=== PATIENT | female | born 1965 | race Caucasian/White ===

== ENCOUNTER 2024-11-06 15:00 | Emergency (ER) | payer OTHER ==
[2024-11-06 18:28] LABS: Hematocrit 24.1 % (34.1-44.9); Hemoglobin 7.2 g/dL (11.2-15.7); Lymphocytes % 15.5 % (19.3-51.7); Mean Cell Volume 106.6 fL (79.4-94.8); Mean Corpuscular Hemoglobin 31.9 pg (25.6-32.2); Mean Corpuscular Hgb Concent. 29.9 g/dL (32.2-35.5); Mean Platelet Volume 9.7 fL (9.4-12.3); Monocytes % 6.9 % (4.7-12.5); Neutrophil % 72.7 % (34.0-71.1); Platelet Count 129 x10^3/uL (182-369); Red Blood Count 2.26 x10^6/uL (3.93-5.22); Red Cell Distribution Width 12.9 % (11.7-14.4); White Blood Count 6.2 x10^3/uL (3.98-10.04)
[2024-11-06 18:29] LABS: Absolute Neutrophil Ct (ANC) 4.51 x10^3/uL (1.56-6.13); BASOPHIL % 0.6 % (0.1-1.2); Basophil (Absolute #) 0.04 x10^3/uL (0.01-0.08); Eosinophil (Absolute #) 0.25 x10^3/uL (0.04-0.36); IMMATURE GRAN # 0.02 x10^3u/L (0.001-0.031); IMMATURE GRAN % 0.3 % (0.001-0.429); Lymphocyte (Absolute #) 0.96 x10^3/uL (1.18-3.74); Monocyte (Absolute #) 0.43 x10^3/uL (0.24-0.86)
--- NOTE | 2024-11-06 18:30 | ERPHSYRPT ---
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 She says she felt like she could not get her air in. She has multiple medical problems. She does not have any chest pain. She said it just felt tight whenever she tried to inhale. She is not short of breath. I would not say that she has pleuritic type symptoms. She has no fever or chills. She does not appear toxic.She has not had any productive cough.She has no other complaints at this time.Patient is a heavy smoker. She has never been diagnosed with COPD but I think she may have (CHAPIS LOERA) Allergies/Adverse Reactions: cefadroxil Allergy (Verified 11/06/24 15:23) cephalexin [From Keflex] Allergy (Verified 11/06/24 15:20) clindamycin Allergy (Verified 11/06/24 15:23) empagliflozin [From Jardiance] Allergy (Verified 11/06/24 15:20) rifampin Allergy (Verified 11/06/24 15:20) Home Medications: Aspirin 81 mg PO DAILY 11/06/24 [History] Atorvastatin Calcium [Lipitor 40Mg] 40 mg PO DAILY 11/06/24 [History] Bumetanide 1 mg [Bumex 1 mg] 0.5 mg PO BID 11/06/24 [History] Gabapentin [Neurontin ] 600 mg PO BID 11/06/24 [History] Lisinopril 10 mg [Zestril 10 MG] 10 mg PO DAILY PRN 11/06/24 [History] Methadone HCl 140 mg PO DAILY 11/06/24 [History] Travel Risk - International Travel Have you traveled outside of the country in past 3 weeks: No - Emerging Infectious Disease Are you exhibiting symptoms associated with any current EIDs: Yes Symptoms: Shortness of Breath <CHAPIS LOERA - Last Filed: 11/06/24 19:03> - Review of Systems Constitutional: No Symptoms Eyes: No Symptoms Ears, Nose, & Throat: No Symptoms Respiratory: Dyspnea on Exertion (LR) Cardiac: No Symptoms Abdominal/Gastrointestinal: No Symptoms <CHAPIS LOERA - Last Filed: 11/06/24 19:03> - Past Medical History Pertinent Past Medical History: Yes Neurological History: Peripheral Neuropathy, Stroke Cardiac History: High Cholesterol, Hypertension Respiratory History: No Pertinent History Endocrine Medical History: Diabetes Type II Musculoskeletal History: Arthritis Other Medical History: AAA (2021), STROKES (>), 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 SENSATION IN LLE POST AMPUTATION, PSOROSIS, CKD (STAGE 4), SCOLIOSIS - Past Surgical History Past Surgical History: Yes Gastrointestinal: Appendectomy Musculoskeletal: Amputation Female Surgical History: Section, Tubal Ligation Other Surgical History: AAA repair - Social History Smoking Status: Current every day smoker Exposure to second hand smoke: Yes - Social Determinants of Health Will the patient participate in the screening: Yes Do you worry about a steady place to live?: No Do you have any problems with any of the following?: No known problems In the past 12 months,have you had to go without utilities?: No Transportation Issues: No Has anyone in your support network made you feel unsafe?: No Have you or anyone in your house had to go w/o enough food: No <CHAPIS LOERA - Last Filed: 11/06/24 19:03> - Physical Exam General Appearance: no apparent distress Eye Exam: PERRL/EOMI Respiratory Exam: other (Patient has diminished breath sounds. It is coarse in the bases and there is some wheezing in the upper lungs bilaterally.), No chest tenderness Cardiovascular Exam: regular rate/rhythm, normal heart sounds Extremity Exam: normal inspection Neurologic Exam: alert Skin Exam: normal color SpO2: 100 <CHAPIS LOERA - Last Filed: 11/06/24 19:03> - Nursing Vital Signs Nursing Vital Signs: Initial Vital Signs O2 Sat by Pulse Oximetry 97 11/06/24 15:03 Pain Scale Pain Intensity 0 - Course Nursing assessment & vital signs reviewed: Yes EKG Interpreted by Me: Sinus Rhythm, Right Bundle Branch Block, Non-specific ST Changes <CHAPIS LOERA - Last Filed: 11/06/24 19:03> Ordered Tests: Active Orders 24 hr Category Date Time Status EKG-ER Only STAT Care 11/06/24 15:17 Completed CBC W DIFF Stat Lab 11/06/24 15:30 Completed CMP Stat Lab 11/06/24 15:30 Completed D-DIMER QUANTITATIVE Stat Lab 11/06/24 15:30 Completed Lactic Acid Stat Lab 11/06/24 18:33 Completed NT PRO BNPII Stat Lab 11/06/24 15:30 Completed TROPONIN Q4H Lab 11/06/24 15:30 Completed TROPONIN Q4H Lab 11/06/24 19:38 Completed VENOUS BLOOD GAS Stat Lab 11/06/24 18:24 Completed Respiratory Therapy Assessment DAILY RT 11/06/24 18:51 Completed Medication Summary Discontinued Medications Generic Name Dose Route Start Last Admin Trade Name Freq PRN Reason Stop Dose Admin Albuterol Sulfate 2.5 mg 11/06/24 18:33 11/06/24 18:46 Albuterol Solution 2.5 Mg/0.5 Ml Ud Solution IH 11/06/24 18:34 2.5 mg STAT ONE Administration Albuterol Sulfate Confirm 11/06/24 18:44 Albuterol Solution 2.5 Mg/0.5 Ml Ud Solution Administered 11/06/24 18:45 Dose 2.5 mg IH .STK-MED ONE Albuterol Sulfate 2.5 mg 11/06/24 19:12 11/06/24 20:16 Albuterol Sulfate 2.5 Mg/3 Ml Neb 11/06/24 19:13 Not Given STAT ONE Albuterol/Ipratropium 3 ml 11/06/24 18:33 11/06/24 18:46 Ipratropium/Albuterol Sulfate 3 Ml Ampul.Neb 11/06/24 18:34 3 ml STAT ONE Administration Albuterol/Ipratropium Confirm 11/06/24 18:44 Ipratropium/Albuterol Sulfate 3 Ml Ampul.Neb Administered 11/06/24 18:45 Dose 3 ml IH .STK-MED ONE Albuterol/Ipratropium 3 ml 11/06/24 20:50 11/06/24 20:52 Ipratropium/Albuterol Sulfate 3 Ml Ampul.Neb IH 11/06/24 20:51 3 ml STAT ONE Administration Albuterol/Ipratropium Confirm 11/06/24 20:51 Ipratropium/Albuterol Sulfate 3 Ml Ampul.Neb Administered 11/06/24 20:52 Dose 3 ml IH .STK-MED ONE Calcium Chloride Confirm 11/06/24 19:27 Calcium Chloride 100 Mg/Ml 10ml Inj. Administered 11/06/24 19:28 Dose 1,000 mg .ROUTE .STK-MED ONE Dextrose 50 ml 11/06/24 19:15 Dextrose 50%-Water 50 Ml Vial IV 12/06/24 19:14 1XONLY MANNY Dextrose Confirm 11/06/24 19:29 Dextrose 50%-Water 50 Ml Abboject Administered 11/06/24 19:30 Dose 50 ml IV .STK-MED ONE Dextrose 50 ml 11/06/24 19:41 11/06/24 19:42 Dextrose 50%-Water 50 Ml Abboject IV 11/06/24 19:42 50 ml STAT ONE Administration Furosemide 40 mg 11/06/24 19:13 11/06/24 19:38 Furosemide 40 Mg/4 Ml Vial IV 11/06/24 19:14 40 mg STAT ONE Administration Furosemide Confirm 11/06/24 19:28 Furosemide 40 Mg/4 Ml Vial Administered 11/06/24 19:29 Dose 40 mg .ROUTE .STK-MED ONE Calcium Chloride 1,000 mg/ 110 mls @ 220 mls/hr 11/06/24 19:12 11/06/24 20:05 Sodium Chloride IV 11/06/24 19:41 Infused ONCE ONE Infusion Sodium Chloride Confirm 11/06/24 19:29 Sodium Chloride 0.9% Administered 11/06/24 19:30 Dose 100 mls @ ud .ROUTE .STK-MED ONE Insulin Human Regular 10 unit 11/06/24 19:14 11/06/24 19:38 Insulin Regular, Human 1 Unit IV 11/06/24 19:15 10 unit STAT ONE Administration Insulin Human Regular Confirm 11/06/24 19:28 Insulin Regular, Human 1 Unit Administered 11/06/24 19:29 Dose 10 unit .ROUTE .[facility] ONE Lab/Rad Data: Laboratory Result Diagrams 11/06/24 15:30 11/06/24 15:30 Laboratory Results 11/06/24 11/06/24 11/06/24 Range/Units 19:38 18:33 18:24 WBC (3.98-10.04) x10^3/uL RBC (3.93-5.22) x10^6/uL Hgb (11.2-15.7) g/dL Hct (34.1-44.9) % MCV (79.4-94.8) fL MCH (25.6-32.2) pg MCHC (32.2-35.5) g/dL RDW (11.7-14.4) % Plt Count (182-369) x10^3/uL MPV (9.4-12.3) fL Gran % (34.0-71.1) % Immature Gran % (Auto) (0.001-0.429) % Nucleat RBC Rel Count (0.00-0.2) % Eos # (Auto) (0.04-0.36) x10^3/uL Immature Gran # (Auto) (0.001-0.031) x10^3u/L Absolute Lymphs (auto) (1.18-3.74) x10^3/uL Absolute Monos (auto) (0.24-0.86) x10^3/uL Absolute Nucleated RBC (0.00-0.012) x10^3u/L Lymphocytes % (19.3-51.7) % Monocytes % (4.7-12.5) % Eosinophils % (0.7-5.8) % Basophils % (0.1-1.2) % Absolute Granulocytes (1.56-6.13) x10^3/uL Basophils # (0.01-0.08) x10^3/uL D-Dimer (0.0-0.50) mg/L pO2/FiO2 Ratio 21.0 % VBG pH 7.25 L (7.32-7.42) VBG pCO2 at Pat Temp 47 (42-55) mm/Hg VBG pO2 at Pat Temp 49 H (25-40) mm/Hg VBG HCO3 20.6 L (22-28) meq/L VBG O2 Sat (De) 84.8 L (95-100) VBG Base Excess -6.3 L (-2.0-2.0) VBG Hemoglobin 7.7 L* VBG Carboxyhemoglobin 5.1 (0.0-6.9) % T HGB POC Potassium 7.5 H* (3.5-5.1) Sodium (135-145) mmol/L Potassium (3.5-5.1) mmol/L Chloride (98-107) mmol/L Carbon Dioxide (22-30) mmol/L Anion Gap (5-15) MEQ/L BUN (7-17) mg/dL Creatinine (0.52-1.04) mg/dL Estimated GFR ML/MIN Glucose (74-106) mg/dL Lactic Acid 1.8 (0.4-2.0) Calcium (8.4-10.2) mg/dL Total Bilirubin (0.2-1.3) mg/dL AST (14-36) U/L ALT (0-35) U/L Alkaline Phosphatase (38-126) U/L Troponin I 0.017 (0.000-0.033) ng/mL NT-Pro-B Natriuret Pep (<300) pg/mL Serum Total Protein (6.3-8.2) g/dL Albumin (3.5-5.0) g/dL 11/06/24 11/06/24 11/06/24 Range/Units 15:30 15:30 15:30 WBC 6.2 (3.98-10.04) x10^3/uL RBC 2.26 L (3.93-5.22) x10^6/uL Hgb 7.2 L (11.2-15.7) g/dL Hct 24.1 L (34.1-44.9) % MCV 106.6 H (79.4-94.8) fL MCH 31.9 (25.6-32.2) pg MCHC 29.9 L (32.2-35.5) g/dL RDW 12.9 (11.7-14.4) % Plt Count 129 L (182-369) x10^3/uL MPV 9.7 (9.4-12.3) fL Gran % 72.7 H (34.0-71.1) % Immature Gran % (Auto) 0.3 (0.001-0.429) % Nucleat RBC Rel Count 0.0 (0.00-0.2) % Eos # (Auto) 0.25 (0.04-0.36) x10^3/uL Immature Gran # (Auto) 0.02 (0.001-0.031) x10^3u/L Absolute Lymphs (auto) 0.96 L (1.18-3.74) x10^3/uL Absolute Monos (auto) 0.43 (0.24-0.86) x10^3/uL Absolute Nucleated RBC 0.00 (0.00-0.012) x10^3u/L Lymphocytes % 15.5 L (19.3-51.7) % Monocytes % 6.9 (4.7-12.5) % Eosinophils % 4.0 (0.7-5.8) % Basophils % 0.6 (0.1-1.2) % Absolute Granulocytes 4.51 (1.56-6.13) x10^3/uL Basophils # 0.04 (0.01-0.08) x10^3/uL D-Dimer 3.56 H* (0.0-0.50) mg/L pO2/FiO2 Ratio % VBG pH (7.32-7.42) VBG pCO2 at Pat Temp (42-55) mm/Hg VBG pO2 at Pat Temp (25-40) mm/Hg VBG HCO3 (22-28) meq/L VBG O2 Sat (De) (95-100) VBG Base Excess (-2.0-2.0) VBG Hemoglobin VBG Carboxyhemoglobin (0.0-6.9) % T HGB POC Potassium (3.5-5.1) Sodium 142 (135-145) mmol/L Potassium 7.0 H* (3.5-5.1) mmol/L Chloride 108 H (98-107) mmol/L Carbon Dioxide 18 L (22-30) mmol/L Anion Gap 22.3 H (5-15) MEQ/L BUN 68 H (7-17) mg/dL Creatinine 7.23 H (0.52-1.04) mg/dL Estimated GFR 6.1 ML/MIN Glucose 89 (74-106) mg/dL Lactic Acid (0.4-2.0) Calcium 8.2 L (8.4-10.2) mg/dL Total Bilirubin 0.50 (0.2-1.3) mg/dL AST 33 (14-36) U/L ALT 15 (0-35) U/L Alkaline Phosphatase 325 H (38-126) U/L Troponin I (0.000-0.033) ng/mL NT-Pro-B Natriuret Pep 983 (<300) pg/mL Serum Total Protein 7.7 (6.3-8.2) g/dL Albumin 3.6 (3.5-5.0) g/dL 11/06/24 Range/Units 15:30 WBC (3.98-10.04) x10^3/uL RBC (3.93-5.22) x10^6/uL Hgb (11.2-15.7) g/dL Hct (34.1-44.9) % MCV (79.4-94.8) fL MCH (25.6-32.2) pg MCHC (32.2-35.5) g/dL RDW (11.7-14.4) % Plt Count (182-369) x10^3/uL MPV (9.4-12.3) fL Gran % (34.0-71.1) % Immature Gran % (Auto) (0.001-0.429) % Nucleat RBC Rel Count (0.00-0.2) % Eos # (Auto) (0.04-0.36) x10^3/uL Immature Gran # (Auto) (0.001-0.031) x10^3u/L Absolute Lymphs (auto) (1.18-3.74) x10^3/uL Absolute Monos (auto) (0.24-0.86) x10^3/uL Absolute Nucleated RBC (0.00-0.012) x10^3u/L Lymphocytes % (19.3-51.7) % Monocytes % (4.7-12.5) % Eosinophils % (0.7-5.8) % Basophils % (0.1-1.2) % Absolute Granulocytes (1.56-6.13) x10^3/uL Basophils # (0.01-0.08) x10^3/uL D-Dimer (0.0-0.50) mg/L pO2/FiO2 Ratio % VBG pH (7.32-7.42) VBG pCO2 at Pat Temp (42-55) mm/Hg VBG pO2 at Pat Temp (25-40) mm/Hg VBG HCO3 (22-28) meq/L VBG O2 Sat (De) (95-100) VBG Base Excess (-2.0-2.0) VBG Hemoglobin VBG Carboxyhemoglobin (0.0-6.9) % T HGB POC Potassium (3.5-5.1) Sodium (135-145) mmol/L Potassium (3.5-5.1) mmol/L Chloride (98-107) mmol/L Carbon Dioxide (22-30) mmol/L Anion Gap (5-15) MEQ/L BUN (7-17) mg/dL Creatinine (0.52-1.04) mg/dL Estimated GFR ML/MIN Glucose (74-106) mg/dL Lactic Acid (0.4-2.0) Calcium (8.4-10.2) mg/dL Total Bilirubin (0.2-1.3) mg/dL AST (14-36) U/L ALT (0-35) U/L Alkaline Phosphatase (38-126) U/L Troponin I < 0.012 (0.000-0.033) ng/mL NT-Pro-B Natriuret Pep (<300) pg/mL Serum Total Protein (6.3-8.2) g/dL Albumin (3.5-5.0) g/dL - Progress Progress: improved Air Movement: good Blood Culture(s) Obtained: No Antibiotics given: No <CHAPIS LOERA - Last Filed: 11/06/24 19:03> <PRABHA CASTILLO - Last Filed: 11/07/24 07:10> - Progress Progress Note: I think the patient is having a COPD exacerbation. Her breath sounds are somewhat wheezing and prolonged. It does not appear to be infectious. I am going to get an x-ray and some lab work on her we will go ahead and get troponins because of her risk factors. On the differential was pneumonia coronary vascular event, pulmonary embolism, COPD exacerbation, pneumonia. 11/06/24 18:31 (CHAPIS LOERA) Patient endorsed to Dr. Castillo at approximately 7 PM. Patient initially evaluated and treated by Dr. Loera. Laboratory workup reveals acute renal failure. Hyperkalemia. Patient will likely require hemodialysis. Patient is new to the area from [place]. She is currently scheduled to see a local framing [employer] supervisor Dr. Muse who is on staff at [facility]. Case discussed with ER physician Dr. Man who accepts transfer at 8:37 PM. Plan of care discussed with patient. She agrees to transfer to [facility] for further evaluation and treatment. She voices no other complaints or concerns at this time. Portions of this note were created with voice recognition technology. There may be grammatical, spelling, punctuation or sound alike errors Complexity of problem addressed is moderate acute complicated. No critical care time. Complex of data reviewed and analyzed as extensive. Test ordered test reviewed results analyzed and correlated clinically with history and physical exam. Management discussed with ER physician at [facility] who accepts transfer at 8:37 PM. Risk of complication and or risk of morbidity/mortality of patient management is high. Patient will require transfer to higher level of care. Vital stable. Time spent to transfer patient is approximately 20 minutes. Plan of care established for shared decision making. No social determinants of health present to impede follow-up. Portions of this note were created with voice recognition technology. There may be grammatical, spelling, punctuation or sound alike errors 11/06/24 20:38 (PRABHA CASTILLO) <CHAPIS LOERA - Last Filed: 11/06/24 19:03> - Departure Departure Disposition: Transfer Critical Care Time: No <PRABHA CASTILLO - Last Filed: 11/07/24 07:10> - Departure Clinical Impression: Shortness of breath, Acute renal failure, Hyperkalemia, Symptomatic anemia Condition: Stable Referrals: MAEVE CONNOLLY MD [Primary Care Provider, [facility]] - Follow up/PCP as directed
[2024-11-06 18:37] LABS: VBG BASE EXCESS -6.3 (-2.0-2.0); VBG CARBOXYHEMOGLOBIN 5.1 % T HGB (0.0-6.9); VBG HCO3- 20.6 meq/L (22-28); VBG O2 SATURATION 84.8 (95-100); VBG POTASSIUM 7.5 (3.5-5.1); VBG pH 7.25 (7.32-7.42)
[2024-11-06 18:38] LABS: VBG HEMOGLOBIN 7.7
[2024-11-06] MEDS ORDERED: DUONEB 0.5-3 MG/3 ml Neb IH ONE ×2 (18:44→20:51)
[2024-11-06] MEDS ORDERED: PROVENTIL Solution 2.5 MG/0.5 ML IH ONE (18:44)
[2024-11-06] MEDS: PROVENTIL Solution 2.5 MG/0.5 ML IH ONE (18:46)
[2024-11-06] MEDS: DUONEB 0.5-3 MG/3 ml Neb IH ONE ×2 (18:46→20:52)
[2024-11-06 18:59] LABS: ALBUMIN 3.6 g/dL (3.5-5.0); ANION GAP 22.3 MEQ/L (5-15); BILIRUBIN,TOTAL 0.5 mg/dL (0.2-1.3); Calcium 8.2 mg/dL (8.4-10.2); Creatinine 1 7.23 mg/dL (0.52-1.04); EST GLOMERULAR FILTRATION RATE 6.1 ML/MIN; Total Protein 7.7 g/dL (6.3-8.2)
[2024-11-06] MEDS ORDERED: D50W 50ML Vial IV SCH (19:15)
[2024-11-06] MEDS ORDERED: CALCIUM CHLORIDE 10% 1000 MG ONE (19:27)
[2024-11-06] MEDS ORDERED: HUMULIN R ONE (19:28)
[2024-11-06] MEDS ORDERED: Lasix 40 MG/4 ML ONE (19:28)
[2024-11-06] MEDS ORDERED: Sodium Chloride 0.9% 100 ML ONE (19:29)
[2024-11-06] MEDS ORDERED: D50W 50 ml Abboject IV ONE (19:29)
[2024-11-06] MEDS: CALCIUM CHLORIDE 10% 1000 MG 1,000 MG in Sodium Chloride 0.9% 100 ML IV ONE (19:35)
[2024-11-06] MEDS: HUMULIN R IV ONE (19:38)
[2024-11-06] MEDS: Lasix 40 MG/4 ML IV ONE (19:38)
[2024-11-06] MEDS: D50W 50 ml Abboject IV ONE (19:42)
[2024-11-06] MEDS: PROVENTIL 2.5 MG/3 ML NEB IH ONE (20:16)
[2024-11-06 23:01] VITALS: BP 133/71; PULSE 111; RESP 23; O2SAT 97
== END 2024-11-06 23:13 | disposition short-term general hospital (02) ==
LOC: ED 15:00
DX: N17.9 Acute kidney failure, unspecified (principal); E87.5 Hyperkalemia; D64.9 Anemia, unspecified; R06.02 Shortness of breath; R79.1 Abnormal coagulation profile; I12.0 Hypertensive chronic kidney disease with stage 5 chronic kidney disease or end stage renal disease; E11.22 Type 2 diabetes mellitus with diabetic chronic kidney disease; N18.6 End stage renal disease; E11.42 Type 2 diabetes mellitus with diabetic polyneuropathy; E78.5 Hyperlipidemia, unspecified; Z72.0 Tobacco use
CPT/HCPCS: 36415; 80053; 82805; 83605; 83880; 84484; 85025; 85379; 93005; 94640; 96365; 96374; 96375; 99285; J1815; J1938; A9270-GY

== ENCOUNTER 2025-04-17 19:46 | Emergency (ER) | payer MEDICARE ==
--- NOTE | 2025-04-17 19:52 | ERPHSYRPT ---
- History of Present Illness Time Seen by Provider: 04/17/25 19:51 Source: family, EMS, old records Exam Limitations: clinical condition, other (Patient orotracheally intubated) Physician History: This is a morbidly obese 59-year-old white female patient who is brought to the emergency department by the senior c web developer service secondary to unresponsive episode, cyanosis and hypoxia requiring orotracheal intubation/mechanical ventilation. Patient arrives orotracheally intubated unresponsive secondary to 100 mg of intravenous rocuronium and 100 mg of intravenous ketamine. Patient has history of renal failure and has been receiving dialysis through catheter. Today, it was the first session that the patient started peritoneal dialysis. The reports that she became very anxious, could not breathe and then suddenly became unresponsive, turned blue and began agonal breathing. Paramedics were then notified. No CPR was performed. Patient's blood sugar on arrival to our emergency department 425. Patient's heart rate on arrival to emergency department 109 bpm. The blood pressure on arrival to the emergency department 117/65 with an 86% oxygen saturation level. The patient's reports that patient had her first stroke in 2019 with no residual effect. 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 Patient has a history of renal failure on peritoneal dialysis, hyperlipidemia, peripheral neuropathy, hypertension and left below the knee amputation. Timing/Duration: today Severity: severe Associated Symptoms: other (Patient orotracheally intubated, sedated and paralyzed) Allergies/Adverse Reactions: cefadroxil Allergy (Verified 04/17/25 20:54) cephalexin [From Keflex] Allergy (Verified 04/17/25 20:54) clindamycin Allergy (Verified 04/17/25 20:54) empagliflozin [From Jardiance] Allergy (Verified 04/17/25 20:54) rifampin Allergy (Verified 04/17/25 20:54) Home Medications: Bumetanide 1 mg [Bumex 1 mg] 2 mg PO DAILY 11/06/24 [History] Gabapentin [Neurontin ] 600 mg PO BID 11/06/24 [History] Methadone HCl 140 mg PO DAILY 11/06/24 [History] Midodrine HCl [Proamatine] 5 mg PO DAILY 04/17/25 [History] Hx Influenza Vaccination/Date Given: No Hx Pneumococcal Vaccination/Date Given: No Travel Risk - International Travel Have you traveled outside of the country in past 3 weeks: No - Emerging Infectious Disease Are you exhibiting symptoms associated with any current EIDs: Yes Symptoms: Shortness of Breath - Review of Systems Constitutional: Other (Patient orotracheally intubated, sedated and paralyzed) Ears, Nose, & Throat: Other (Orotracheal tube in place) Respiratory: No Symptoms Cardiac: No Symptoms Abdominal/Gastrointestinal: No Symptoms Genitourinary Symptoms: No Symptoms Musculoskeletal: No Symptoms Skin: No Symptoms Neurological: Other (Orotracheally intubated, sedated and paralyzed) Psychological: No Symptoms Endocrine: No Symptoms Hematologic/Lymphatic: No Symptoms Immunological/Allergic: No Symptoms All Other Systems: Reviewed and Negative - Past Medical History Pertinent Past Medical History: Yes Neurological History: Peripheral Neuropathy, Stroke Cardiac History: High Cholesterol, Hypertension Respiratory History: No Pertinent History Endocrine Medical History: Diabetes Type II Musculoskeletal History: Arthritis Other Medical History: AAA (2021), STROKES (7>), 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 SENSATION IN LLE POST AMPUTATION, PSOROSIS, CKD (STAGE 4), SCOLIOSIS - Past Surgical History Past Surgical History: Yes Gastrointestinal: Appendectomy Musculoskeletal: Amputation Female Surgical History: Section, Tubal Ligation Other Surgical History: AAA repair - Social History Smoking Status: Current every day smoker Exposure to second hand smoke: Yes - Social Determinants of Health Will the patient participate in the screening: Yes Do you worry about a steady place to live?: No In the past 12 months,have you had to go without utilities?: No Transportation Issues: No Has anyone in your support network made you feel unsafe?: No Have you or anyone in your house had to go w/o enough food: No - Nursing Vital Signs Nursing Vital Signs: Initial Vital Signs Pulse Rate 107 H 04/17/25 19:52 Respiratory Rate 18 04/17/25 19:52 Blood Pressure 117/65 04/17/25 19:52 O2 Sat by Pulse Oximetry 86 L 04/17/25 19:52 Pain Scale Pain Intensity 0 - Physical Exam General Appearance: obese, other (Orotracheal intubated sedated and paralyzed) Ears, Nose, Throat Exam: dry mucous membranes, other (Oral tracheal intubation) Neck Exam: normal inspection Respiratory Exam: respiratory distress, diminished breath sounds (Left side) Cardiovascular Exam: tachycardia Gastrointestinal/Abdomen Exam: soft, normal bowel sounds, No tenderness Pelvic Exam: not done Rectal Exam: not done Back Exam: normal inspection Extremity Exam: pelvis stable, other (Left BKA) Neurologic Exam: other (Patient orotracheally intubated, sedated and paralyzed) Skin Exam: normal color, warm, dry Lymphatic Exam: No adenopathy SpO2 Interpretation: hypoxic O2 Delivery: Ventilator - Course Nursing assessment & vital signs reviewed: Yes EKG Interpreted by Me: RATE (107), Sinus Tach, Non-specific ST Changes, Other (QTc is 494. The computer readout says ST elevation consider inferior injury. I do not see any ST elevation present. We will obtain labs and repeat twelve- lead EKG shortly) Ordered Tests: Active Orders 24 hr Category Date Time Status EKG-ER Only STAT Care 04/17/25 19:52 Active IV Insertion STAT Care 04/17/25 19:52 Active Pulse Oximetry (ED) STAT Care 04/17/25 19:52 Active CHEST 1 VIEW (PORTABLE) Stat Exams 04/17/25 20:17 Taken CHEST 1 VIEW (PORTABLE) Stat Exams 04/17/25 20:17 Taken HEAD WITHOUT CONTRAST [CT] Stat Exams 04/17/25 21:15 Taken ABG [ARTERIAL BLOOD GASES] Stat Lab 04/17/25 20:23 Completed ABG [ARTERIAL BLOOD GASES] Stat Lab 04/17/25 20:54 Completed CBC W DIFF Stat Lab 04/17/25 20:00 Completed CMP Stat Lab 04/17/25 20:00 Completed CULTURE,URINE Stat Lab 04/17/25 20:37 Received Lactic Acid Stat Lab 04/17/25 19:52 Completed Lactic Acid Stat Lab 04/17/25 22:34 Completed MAGNESIUM Stat Lab 04/17/25 20:00 Completed NT PRO BNPII Stat Lab 04/17/25 20:00 Completed POCT GLUCOSE Stat Lab 04/17/25 21:51 Completed TROPONIN Q4H Lab 04/17/25 20:00 Completed TROPONIN Q4H Lab 04/18/25 00:00 Ordered TROPONIN Q4H Lab 04/18/25 04:00 Ordered UA W/RFX UR CULTURE Stat Lab 04/17/25 20:37 Completed Medication Summary Generic Name Dose Route Start Last Admin Trade Name Leigh PRN Reason Stop Dose Admin Midazolam HCl 50 mg/ Sodium 250 mls @ 14.225 mls/hr 04/17/25 19:52 04/17/25 21:23 Chloride IV 05/17/25 19:51 0.025 mg/kg/hr .[id number] PRN 14.225 mls/hr SEDATION Titration Protocol 0.025 MG/KG/HR Discontinued Medications Generic Name Dose Route Start Last Admin Trade Name Leigh PRN Reason Stop Dose Admin Bumetanide 1 mg 04/17/25 21:02 04/17/25 21:21 Bumetanide 0.25 Mg/Ml 4ml Vial IV 04/17/25 21:03 1 mg STAT ONE Administration Bumetanide Confirm 04/17/25 21:17 Bumetanide 0.25 Mg/Ml 4ml Vial Administered 04/17/25 21:18 Dose 1 mg .ROUTE .STK-MED ONE Levofloxacin/Dextrose 500 mg in 100 mls @ 100 mls/hr 04/17/25 21:36 04/17/25 22:44 Levofloxacin 500mg/100ml D5w IV 04/17/25 22:35 Infused STAT STA Infusion Sodium Chloride 500 mls @ 500 mls/hr 04/17/25 21:40 04/17/25 22:45 Sodium Chloride 0.9% 500 Ml IV 04/17/25 22:39 0 mls/hr .Q1H ONE Infusion Levofloxacin/Dextrose Confirm 04/17/25 21:41 Levofloxacin 500mg/100ml D5w Administered 04/17/25 21:42 Dose 500 mg in 100 mls @ ud IV .STK-MED ONE Sodium Chloride Confirm 04/17/25 21:41 Sodium Chloride 0.9% 500 Ml Administered 04/17/25 21:42 Dose 500 mls @ ud IV .STK-MED ONE Insulin Human Regular 12 unit 04/17/25 20:54 04/17/25 21:19 Insulin Regular, Human 1 Unit IV 04/17/25 20:55 12 unit STAT ONE Administration Insulin Human Regular Confirm 04/17/25 21:18 Insulin Regular, Human 1 Unit Administered 04/17/25 21:19 Dose 12 unit .ROUTE .STK-MED ONE Sodium Bicarbonate 50 meq 04/17/25 20:04 04/17/25 20:15 Sodium Bicarbonate 1 Meq/Ml 50ml Vial IV 04/17/25 20:05 50 meq STAT ONE Administration Sodium Bicarbonate Confirm 04/17/25 20:12 Sodium Bicarbonate 1 Meq/Ml 50ml Syringe Administered 04/17/25 20:13 Dose 50 meq IV .STK-MED ONE Sodium Bicarbonate Confirm 04/17/25 20:15 Sodium Bicarbonate 1 Meq/Ml 50ml Vial Administered 04/17/25 20:16 Dose 50 meq .ROUTE .STK-MED ONE Lab/Rad Data: Laboratory Result Diagrams 04/17/25 20:00 04/17/25 20:00 Laboratory Results 04/17/25 04/17/25 04/17/25 Range/Units 22:34 21:51 20:54 WBC (3.98-10.04) x10^3/uL RBC (3.93-5.22) x10^6/uL Hgb (11.2-15.7) g/dL Hct (34.1-44.9) % MCV (79.4-94.8) fL MCH (25.6-32.2) pg MCHC (32.2-35.5) g/dL RDW (11.7-14.4) % Plt Count (182-369) x10^3/uL MPV (9.4-12.3) fL Gran % (34.0-71.1) % Immature Gran % (Auto) (0.001-0.429) % Nucleat RBC Rel Count (0.00-0.2) % Eos # (Auto) (0.04-0.36) x10^3/uL Immature Gran # (Auto) (0.001-0.031) x10^3u/L Absolute Lymphs (auto) (1.18-3.74) x10^3/uL Absolute Monos (auto) (0.24-0.86) x10^3/uL Absolute Nucleated RBC (0.00-0.012) x10^3u/L Lymphocytes % (19.3-51.7) % Monocytes % (4.7-12.5) % Eosinophils % (0.7-5.8) % Basophils % (0.1-1.2) % Absolute Granulocytes (1.56-6.13) x10^3/uL Basophils # (0.01-0.08) x10^3/uL Puncture Site RRA pCO2 60 H* (35-45) mmHg pO2 124 H* (75-100) mmHg Base Excess 3.9 H (-2.0-2.0) O2 Saturation 97.1 (94-100) g/dF ABG pH 7.32 L (7.35-7.45) ABG HCO3 30.9 H* (22-28) ABG O2 Sat (Measured) 99.5 (95-100) % Gordy Test yes A-a Gradient 514 a/A Ratio 0.19 Hemoglobin 9.1 Carboxyhemoglobin 1.7 (0.0-6.9) % THgb Methemoglobin 0.7 L (1.4-1.5) % Temperature 37.0 C POC O2 Flow Rate 100 % Sodium (135-145) mmol/L Potassium 4.0 (3.5-5.1) mmol/L Chloride (98-107) mmol/L Carbon Dioxide (22-30) mmol/L Anion Gap (5-15) MEQ/L BUN (7-17) mg/dL Creatinine (0.52-1.04) mg/dL Estimated GFR ML/MIN Glucose (74-106) mg/dL POC Glucometer 326 H (74 to 106) mg/dL Lactic Acid 1.6 (0.4-2.0) Calcium (8.4-10.2) mg/dL Magnesium (1.6-2.3) mg/dL Total Bilirubin (0.2-1.3) mg/dL AST (14-36) U/L ALT (0-35) U/L Alkaline Phosphatase (38-126) U/L Troponin I (0.000-0.033) ng/mL NT-Pro-B Natriuret Pep (<300) pg/mL Serum Total Protein (6.3-8.2) g/dL Albumin (3.5-5.0) g/dL Urine Color (Yellow) Urine Appearance (Clear) Urine pH (4.6-8.0) Ur Specific [place] (1.005-1.030) Urine Protein (Negative) Urine Glucose (UA) (Negative) mg/dL Urine Ketones (Negative) Urine Blood (Negative) Urine Nitrite (Negative) Urine Bilirubin (Negative) Urine Urobilinogen (0.2) mg/dL Ur Leukocyte Esterase (Negative) U Hyaline Cast (Auto) (0-2) /LPF Urine Microscopic RBC (0-5) /HPF Urine Microscopic WBC (0-5) /HPF Ur Epithelial Cells (None Seen) /HPF Urine Bacteria (None Seen) /HPF Urine Culture Reflexed (NO) 04/17/25 04/17/25 04/17/25 Range/Units 20:37 20:23 20:00 WBC (3.98-10.04) x10^3/uL RBC (3.93-5.22) x10^6/uL Hgb (11.2-15.7) g/dL Hct (34.1-44.9) % MCV (79.4-94.8) fL MCH (25.6-32.2) pg MCHC (32.2-35.5) g/dL RDW (11.7-14.4) % Plt Count (182-369) x10^3/uL MPV (9.4-12.3) fL Gran % (34.0-71.1) % Immature Gran % (Auto) (0.001-0.429) % Nucleat RBC Rel Count (0.00-0.2) % Eos # (Auto) (0.04-0.36) x10^3/uL Immature Gran # (Auto) (0.001-0.031) x10^3u/L Absolute Lymphs (auto) (1.18-3.74) x10^3/uL Absolute Monos (auto) (0.24-0.86) x10^3/uL Absolute Nucleated RBC (0.00-0.012) x10^3u/L Lymphocytes % (19.3-51.7) % Monocytes % (4.7-12.5) % Eosinophils % (0.7-5.8) % Basophils % (0.1-1.2) % Absolute Granulocytes (1.56-6.13) x10^3/uL Basophils # (0.01-0.08) x10^3/uL Puncture Site RRA pCO2 67 H* (35-45) mmHg pO2 59 L (75-100) mmHg Base Excess -3.5 L (-2.0-2.0) O2 Saturation 82.7 L (94-100) g/dF ABG pH 7.19 L* (7.35-7.45) ABG HCO3 25.6 (22-28) ABG O2 Sat (Measured) 84.8 L (95-100) % Gordy Test yes A-a Gradient 570 a/A Ratio 0.09 Hemoglobin 11.2 Carboxyhemoglobin 1.7 (0.0-6.9) % THgb Methemoglobin 0.8 L (1.4-1.5) % Temperature 37.0 C POC O2 Flow Rate 100 % Sodium (135-145) mmol/L Potassium 3.7 (3.5-5.1) mmol/L Chloride (98-107) mmol/L Carbon Dioxide (22-30) mmol/L Anion Gap (5-15) MEQ/L BUN (7-17) mg/dL Creatinine (0.52-1.04) mg/dL Estimated GFR ML/MIN Glucose (74-106) mg/dL POC Glucometer (74 to 106) mg/dL Lactic Acid (0.4-2.0) Calcium (8.4-10.2) mg/dL Magnesium (1.6-2.3) mg/dL Total Bilirubin (0.2-1.3) mg/dL AST (14-36) U/L ALT (0-35) U/L Alkaline Phosphatase (38-126) U/L Troponin I < 0.012 (0.000-0.033) ng/mL NT-Pro-B Natriuret Pep 1200 (<300) pg/mL Serum Total Protein (6.3-8.2) g/dL Albumin (3.5-5.0) g/dL Urine Color Yellow (Yellow) Urine Appearance Clear (Clear) Urine pH 7.5 (4.6-8.0) Ur Specific [place] 1.015 (1.005-1.030) Urine Protein 100 A (Negative) Urine Glucose (UA) >=1000 A (Negative) mg/dL Urine Ketones Negative (Negative) Urine Blood Moderate A (Negative) Urine Nitrite Negative (Negative) Urine Bilirubin Negative (Negative) Urine Urobilinogen 1.0 A (0.2) mg/dL Ur Leukocyte Esterase Small A (Negative) U Hyaline Cast (Auto) 3-5 A (0-2) /LPF Urine Microscopic RBC 21-50 A (0-5) /HPF Urine Microscopic WBC 11-20 A (0-5) /HPF Ur Epithelial Cells Rare (None Seen) /HPF Urine Bacteria None Seen (None Seen) /HPF Urine Culture Reflexed ORDERED SEPARATELY (NO) 04/17/25 04/17/25 04/17/25 Range/Units 20:00 20:00 19:52 WBC 9.5 (3.98-10.04) x10^3/uL RBC 2.96 L (3.93-5.22) x10^6/uL Hgb 9.5 L (11.2-15.7) g/dL Hct 31.4 L (34.1-44.9) % MCV 106.1 H (79.4-94.8) fL MCH 32.1 (25.6-32.2) pg MCHC 30.3 L (32.2-35.5) g/dL RDW 14.0 (11.7-14.4) % Plt Count 102 L (182-369) x10^3/uL MPV 10.3 (9.4-12.3) fL Gran % 64.8 (34.0-71.1) % Immature Gran % (Auto) 1.3 H (0.001-0.429) % Nucleat RBC Rel Count 0.0 (0.00-0.2) % Eos # (Auto) 0.30 (0.04-0.36) x10^3/uL Immature Gran # (Auto) 0.12 H (0.001-0.031) x10^3u/L Absolute Lymphs (auto) 2.21 (1.18-3.74) x10^3/uL Absolute Monos (auto) 0.67 (0.24-0.86) x10^3/uL Absolute Nucleated RBC 0.00 (0.00-0.012) x10^3u/L Lymphocytes % 23.2 (19.3-51.7) % Monocytes % 7.0 (4.7-12.5) % Eosinophils % 3.1 (0.7-5.8) % Basophils % 0.6 (0.1-1.2) % Absolute Granulocytes 6.17 H (1.56-6.13) x10^3/uL Basophils # 0.06 (0.01-0.08) x10^3/uL Puncture Site pCO2 (35-45) mmHg pO2 (75-100) mmHg Base Excess (-2.0-2.0) O2 Saturation (94-100) g/dF ABG pH (7.35-7.45) ABG HCO3 (22-28) ABG O2 Sat (Measured) (95-100) % Gordy Test A-a Gradient a/A Ratio Hemoglobin Carboxyhemoglobin (0.0-6.9) % THgb Methemoglobin (1.4-1.5) % Temperature C POC O2 Flow Rate % Sodium 134 L (135-145) mmol/L Potassium 4.0 (3.5-5.1) mmol/L Chloride 93 L (98-107) mmol/L Carbon Dioxide 27 (22-30) mmol/L Anion Gap 17.8 H (5-15) MEQ/L BUN 34 H (7-17) mg/dL Creatinine 5.60 H (0.52-1.04) mg/dL Estimated GFR 8.3 ML/MIN Glucose 466 H (74-106) mg/dL POC Glucometer (74 to 106) mg/dL Lactic Acid 5.2 H (0.4-2.0) Calcium 7.5 L (8.4-10.2) mg/dL Magnesium 2.7 H (1.6-2.3) mg/dL Total Bilirubin 0.90 (0.2-1.3) mg/dL AST 36 (14-36) U/L ALT 19 (0-35) U/L Alkaline Phosphatase 377 H (38-126) U/L Troponin I (0.000-0.033) ng/mL NT-Pro-B Natriuret Pep (<300) pg/mL Serum Total Protein 7.1 (6.3-8.2) g/dL Albumin 3.1 L (3.5-5.0) g/dL Urine Color (Yellow) Urine Appearance (Clear) Urine pH (4.6-8.0) Ur Specific [place] (1.005-1.030) Urine Protein (Negative) Urine Glucose (UA) (Negative) mg/dL Urine Ketones (Negative) Urine Blood (Negative) Urine Nitrite (Negative) Urine Bilirubin (Negative) Urine Urobilinogen (0.2) mg/dL Ur Leukocyte Esterase (Negative) U Hyaline Cast (Auto) (0-2) /LPF Urine Microscopic RBC (0-5) /HPF Urine Microscopic WBC (0-5) /HPF Ur Epithelial Cells (None Seen) /HPF Urine Bacteria (None Seen) /HPF Urine Culture Reflexed (NO) - Progress Progress: improved, re-examined Progress Note: 04/17/25 20:31 My medical decision making and the assignment of high complexity of this patient's medical history is based on review of the patient's past medical history, reviewed the patient's medication list, reviewed patient drug allergy list, history present illness and physical findings on examination. The workup in this patient includes postintubation chest x-ray, intravenous line placement, Jorge catheter placement, eulalio gastric tube placement, CBC, CMP, troponin level, BNP, urinalysis, lactic acid level, ABG, magnesium level, CT scan of the head without contrast. Differential diagnosis includes was not limited to myocardial infarction, CVA, electrolyte abnormalities, CHF, hypercapnia, hypoxia 04/17/25 20:43 I interpreted the initial chest x-ray which showed the ET tube in the right mainstem bronchus. The left lung field was with "whiteout" and not being ventilated. I interpreted the preliminary report of the second chest x-ray to include the upper abdomen. The ET tube was repositioned 3 cm more proximally and now the left lung field shows ventilation with improvement. The ET tube is above the bifurcation. There is a question of cardiomegaly, fluid in the left lower lobe and possible infiltrate. The orogastric tube is within the lumen of the stomach. 04/17/25 22:[address] scan of the head without contrast was interpreted by the radiologist and I reviewed the impression. The impression states nonacute senile brain 04/17/25 22:34 I interpreted the patient's laboratory data results. Based on laboratory data results, the patient does have an elevated magnesium level at 2.7 and a BNP of 1200 mild urinary tract infection, elevated lactic acid level 5.2 and a GFR of 8.3. There is an elevated anion gap at 17.8. 04/17/25 22:50 I spoke to the emergency department physician at [facility], . I reviewed the patient history, presenting complaint, physical findings on examination and workup results. was informed that this patient is on a mechanical ventilator. He accepts the patient in transfer. Counseled pt/family regarding: lab results, diagnosis, rad results Medical Desision Making - Independent Historian Additional History obtained from: Spouse, Family - Diagnostic Testing Diagnostic test were ordered, analyzed, and reviewed by me: Yes Radiological Interpretation: Interpreted by me - Risk of complications The pt has a high risk of morbidity or mortality based on: Decision regarding hospitilization or escalation of hosp level of care - Departure Departure Disposition: Transfer Clinical Impression: Unresponsive episode, Cyanosis, Endotracheally intubated, On mechanically assisted ventilation, Congestive heart failure, Left pulmonary infiltrate on CXR Condition: Serious Critical Care Time: Yes Critical Care Time(excluding separately billable procedures): Critical 30-74 mins Referrals: MAEVE CONNOLLY MD [Primary Care Provider, [facility]] - Follow up/PCP as directed Instructions: Heart Failure
[2025-04-17] MEDS: Versed 50 MG/ 10 Ml MDV*** 50 MG in Sodium Chloride 0.9% 250 ML 240 ML IV PRN (19:53)
[2025-04-17 20:07] LABS: BASOPHIL % 0.6 % (0.1-1.2); Basophil (Absolute #) 0.06 x10^3/uL (0.01-0.08); Eosinophil (Absolute #) 0.30 x10^3/uL (0.04-0.36); Hematocrit 31.4 % (34.1-44.9); Hemoglobin 9.5 g/dL (11.2-15.7); IMMATURE GRAN # 0.12 x10^3u/L (0.001-0.031); IMMATURE GRAN % 1.3 % (0.001-0.429); Lymphocyte (Absolute #) 2.21 x10^3/uL (1.18-3.74); Mean Corpuscular Hemoglobin 32.1 pg (25.6-32.2); Mean Corpuscular Hgb Concent. 30.3 g/dL (32.2-35.5); Monocyte (Absolute #) 0.67 x10^3/uL (0.24-0.86); NUCLEATED RBC # 0.00 x10^3u/L (0.00-0.012); NUCLEATED RBC % 0.0 % (0.00-0.2); Platelet Count 102 x10^3/uL (182-369); Red Blood Count 2.96 x10^6/uL (3.93-5.22); White Blood Count 9.5 x10^3/uL (3.98-10.04)
[2025-04-17] MEDS ORDERED: SODIUM BICARBONATE 50 MEQ/50 ML ABBOJECT IV ONE (20:12)
[2025-04-17] MEDS: Sodium Bicarbonate 50 MEQ/50 ML VIAL IV ONE (20:15)
[2025-04-17] MEDS ORDERED: Sodium Bicarbonate 50 MEQ/50 ML VIAL ONE (20:15)
[2025-04-17 20:24] LABS: A-aADO2 570; ABG HEMOGLOBIN 11.2; ABG POTASSIUM 3.7 (3.5-5.1); ARTERIAL BLD GAS O2 SATURATION 84.8 % (95-100); ARTERIAL BLOOD GAS BASE EXCESS -3.5 (-2.0-2.0); ARTERIAL BLOOD GAS FIO2 100 %; ARTERIAL BLOOD GAS PO2 59 mmHg (75-100); ARTERIAL BLOOD GAS TEMPERATURE 37.0 C; HCO3- 25.6 (22-28); HGB O2 SAT 82.7 g/dF (94-100); Methhemoglobin 0.8 % (1.4-1.5); paO2 pAO1 0.09
[2025-04-17 20:25] LABS: ABG SITE RRA; ALLEN TEST OK? yes; ARTERIAL BLOOD GAS PCO2 67 mmHg (35-45)
[2025-04-17 20:27] LABS: Calcium 7.5 mg/dL (8.4-10.2); Carbon Dioxide 27.0 mmol/L (22-30); Creatinine 1 5.6 mg/dL (0.52-1.04); EST GLOMERULAR FILTRATION RATE 8.3 ML/MIN; Glucose 466.0 mg/dL (74-106); Potassium 4.0 mmol/L (3.5-5.1); SGOT/AST 36.0 U/L (14-36); SGPT/ALT 19.0 U/L (0-35); Total Protein 7.1 g/dL (6.3-8.2)
[2025-04-17 20:32] LABS: NT PRO BNPII 1200 pg/mL (<300); TROPONIN < 0.012 ng/mL (0.000-0.033)
[2025-04-17 20:45] LABS: Glucose, Urine >=1000 mg/dL (Negative); Protein,Urine Dip 100 (Negative); RBC 21-50 /HPF (0-5)
[2025-04-17] MEDS ORDERED: BUMEX 1 MG ONE (21:17)
[2025-04-17] MEDS ORDERED: HUMULIN R ONE (21:18)
[2025-04-17] MEDS: HUMULIN R IV ONE (21:19)
[2025-04-17] MEDS: BUMEX 1 MG IV ONE (21:21)
[2025-04-17 21:23] LABS: A-aADO2 514; ABG HEMOGLOBIN 9.1; ABG POTASSIUM 4.0 (3.5-5.1); ARTERIAL BLD GAS O2 SATURATION 99.5 % (95-100); ARTERIAL BLOOD GAS BASE EXCESS 3.9 (-2.0-2.0); ARTERIAL BLOOD GAS FIO2 100 %; ARTERIAL BLOOD GAS PO2 124 mmHg (75-100); ARTERIAL BLOOD GAS TEMPERATURE 37.0 C; HCO3- 30.9 (22-28); HGB O2 SAT 97.1 g/dF (94-100); Methhemoglobin 0.7 % (1.4-1.5); paO2 pAO1 0.19
[2025-04-17 21:24] LABS: ABG SITE RRA; ALLEN TEST OK? yes; ARTERIAL BLOOD GAS PCO2 60 mmHg (35-45)
[2025-04-17] MEDS ORDERED: Levofloxacin 500MG/100ML D5W 500 MG/100 ML BAG IV ONE (21:41)
[2025-04-17] MEDS: Levofloxacin 500MG/100ML D5W 500 MG/100 ML BAG IV STA (21:44)
[2025-04-17 22:02] VITALS: O2SAT 100
[2025-04-17 23:04] VITALS: PULSE 86; TEMP 96.1
[2025-04-17 23:26] VITALS: BP 107/62; RESP 18
--- NOTE | 2025-04-18 08:42 | XRAY ---
Indication: Altered mental status. Multiple contiguous axial images obtained through the head without contrast. Comparison: None Age-appropriate global atrophy and minimal periventricular degenerative micro ischemia. No acute intracranial hemorrhage, abnormal extra-axial fluid collection, or mass effect. 4th ventricle is midline without hydrocephalus. [place]-white matter differentiation preserved. Bony calvarium intact. Mild mucosal thickening both ethmoid sinuses. Mastoid air cells are clear. Incidental incompletely visualized orogastric and nasogastric tubes. Impression: Nonacute senile brain. Mild paranasal sinus disease.
--- NOTE | 2025-04-18 08:53 | XRAY ---
Indication: Intubation. Comparison: None Portable chest demonstrates endotracheal tube tip in right mainstem bronchus with subsequent near complete left lung and lesser degree right upper lobe atelectasis. Ordering clinician aware of finding and subsequently corrected. Right lung inflated and clear. Heart not enlarged with right double-lumen dialysis catheter. Bony thorax intact with osteopenia and moderate dextro rotoscoliosis centered at T8.
--- NOTE | 2025-04-18 08:53 | XRAY ---
Indication: Repositioned endotracheal tube. Comparison: Taken earlier in the day Portable chest demonstrates withdrawal endotracheal tube with tip now 1.6 cm above judah. Reinflation left lung with residual left lung base and right upper lobe atelectasis. Heart not enlarged. New NG tube traverses chest with tip looped in stomach.
== END 2025-04-17 23:38 | disposition short-term general hospital (02) ==
LOC: ED 19:46
DX: I13.0 Hypertensive heart and chronic kidney disease with heart failure and stage 1 through stage 4 chronic kidney disease, or unspecified chronic kidney disease (principal); E11.22 Type 2 diabetes mellitus with diabetic chronic kidney disease; N18.30 Chronic kidney disease, stage 3 unspecified; I50.9 Heart failure, unspecified; R23.0 Cyanosis; R79.89 Other specified abnormal findings of blood chemistry; N39.0 Urinary tract infection, site not specified; E78.5 Hyperlipidemia, unspecified; F17.200 Nicotine dependence, unspecified, uncomplicated; Z89.512 Acquired absence of left leg below knee; Z79.899 Other long term (current) drug therapy